=== PATIENT | female | born 1970 ===

== ENCOUNTER 2018-05-25 16:13 | Emergency (ER) | payer OTHER ==
--- NOTE | 2018-05-25 18:13 | UC ---
Eye Complaint HPI - HPI Summary HPI Summary: 48-year-old female presents with complaints of left eye dryness, burning, and high crusting in the mornings for the past 2-3 days. States last week she was having flulike symptoms including fever, chills, nasal congestion, runny nose, and a nonproductive cough. States her symptoms have been improving however she is noting a lot of left-sided sinus pressure along with her eye symptoms. Denies fever, chills, visual disturbances, eye drainage, injury to the eye, foreign body sensation, ear pain, sore throat, cough, chest pain, or shortness of breath. - History of Current Complaint Chief Complaint: UCEye Stated Complaint: EYE PAIN Time Seen by Provider: 05/25/18 18:01 Hx Obtained From: Patient Pain Intensity: 5 - Allergies/Home Medications Allergies/Adverse Reactions: Allergies Allergy/AdvReac Type Severity Reaction Status Date / Time No Known Allergies Allergy Verified 05/25/18 16:53 PMH/Surg Hx/FS Hx/Imm Hx Previously Healthy: Yes - Denies siginficant PMH - Surgical History Surgical History: Yes Surgery Procedure, Year, and Place: c section - Family History Known Family History: Positive: Non-Contributory - Social History Occupation: Employed Full-time Lives: With Family Alcohol Use: Weekly Substance Use Type: None Smoking Status (MU): Never Smoked Tobacco Review of Systems All Other Systems Reviewed And Are Negative: Yes Constitutional: Negative: Fever, Chills Skin: Negative: Rash Eyes: Positive: Other - Eye dryness, burning, and crusting in morning. Negative : Blurred Vision, Diplopia, Drainage, Eye Redness, Photophobia ENT: Positive: Sinus Congestion, Sinus Pain/Tenderness. Negative: Sore Throat, Ear Ache, Nasal Discharge Respiratory: Negative: Shortness Of Breath, Cough Cardiovascular: Negative: Palpitations, Chest Pain Gastrointestinal: Negative: Abdominal Pain, Vomiting, Diarrhea, Nausea Genitourinary: Positive: Negative Musculoskeletal: Positive: Negative Neurological: Positive: Negative Is Patient Immunocompromised?: No Physical Exam - Summary Physical Exam Summary: GENERAL APPEARANCE: Well developed, well nourished, alert and cooperative, and appears to be in no acute distress. EYES: Conjunctiva clear. No drainage. PERRL, EOM intact. Vision is grossly intact. EARS: External auditory canals and tympanic membranes clear, hearing grossly intact. NOSE: Mild nasal congestion. No nasal discharge. Left maxillary sinus tenderness. THROAT: Pharynx normal. No tonsilar inflammation, swelling, exudate, or lesions. Uvula midline. Oral cavity normal. Teeth and gingiva in good general condition. NECK: Neck supple, non-tender without lymphadenopathy. CARDIAC: Normal S1 and S2. No S3, S4 or murmurs. Rhythm is regular. There is no peripheral edema, cyanosis or pallor. Extremities are warm and well perfused. Capillary refill is less than 2 seconds. Peripheral pulses intact. LUNGS: Clear to auscultation without rales, rhonchi, wheezing or diminished breath sounds. ABDOMEN: Positive bowel sounds. Soft, nondistended, nontender. No guarding or rebound. No masses or hepatosplenomegally. MUSKULOSKELETAL: ROM intact to all extremities. No joint erythema or tenderness. Normal muscular development. Normal gait. SKIN: Skin normal color, texture and turgor with no lesions or eruptions. Triage Information Reviewed: Yes Vital Signs: Initial Vital Signs Temp 98.6 F 05/25/18 16:53 Pulse 74 05/25/18 16:53 Resp 18 05/25/18 16:53 BP 95/63 05/25/18 16:53 Pulse Ox 100 05/25/18 16:53 Vital Signs Reviewed: Yes Eye Complaint Course/Dx - Course Course Of Treatment: 48-year-old female presents with complaints of left eye dryness, burning, and high crusting in the mornings for the past 2-3 days. States last week she was having flulike symptoms including fever, chills, nasal congestion, runny nose, and a nonproductive cough. States her symptoms have been improving however she is noting a lot of left-sided sinus pressure along with her eye symptoms. Denies fever, chills, visual disturbances, eye drainage, injury to the eye, foreign body sensation, ear pain, sore throat, cough, chest pain, or shortness of breath. Afebrile. Vital signs stable. Exam reveals an adult female in no acute distress with a normal eye exam, maxillary sinus tenderness, and otherwise unremarkable exam. I suspect her symptoms are related to an acute sinus infection. I did offer to treat with a course of antibiotics considering her symptoms developed after what sounds like a viral URI however patient declines at this time and wishes to pursue symptomatic treatment. Recommend saline rinses, fluticasone nasal spray, and [id number] decongestant. She is to return here or follow-up with a primary care provider in 5 days if symptoms do not improve. Anticipatory guidance and warning symptoms reviewed with patient. Verbalizes understanding and agrees with plan of care. - Differential Dx/Diagnosis Differential Diagnosis/HQI/PQRI: Conjunctivitis, Other - URI, sinusitis Provider Diagnosis: Acute maxillary sinusitis Discharge - Sign-Out/Discharge Documenting (check all that apply): Patient Departure All imaging exams completed and their final reports reviewed: No Studies - Discharge Plan Condition: Stable Disposition: HOME Prescriptions: Fluticasone NASAL SPRAY 50MCG* [Flonase NASAL SPRAY 50MCG*] 2 spray BOTH NARES DAILY #1 btl Patient Education Materials: Sinusitis (ED) Referrals: No Primary Care Phys,NOPCP [Primary Care Provider] - Additional Instructions: Your history and exam are consistent with a sinus infection. Sinus infections without fever are most often caused by a viral infection. Viral infections do not respond to antibiotics and are limited to the treatment of symptoms. Viral infections typically run their course in 7-10 days. Drink plenty of fluids to avoid dehydration especially if you are running any fever. Use a saline rinse kit such as Neti Pot or NeilMed at least twice a day to help thin secretions and promote drainage of the sinuses. Use fluticasone (Flonase) nasal spray 2 sprays each nostril once daily. Use an over the counter decongestant such as Sudafed according to directions to help with congestion. Take over the counter acetaminophen (Tylenol) or ibuprofen (Advil, Motrin) according to directions as needed for pain or fever. Return here or follow up with your primary care provider in 5 days if symptoms persist. Seek immediate medical attention in the emergency room if you have fever greater than 100.5 F despite taking acetaminophen or ibuprofen, have chest pain , difficulty breathing, are unable to swallow, or have any worsening of symptoms. - Billing Disposition and Condition Condition: STABLE Disposition: Home
== END 2018-05-25 18:34 | disposition home or self-care (01) ==
LOC: UCEAST 16:13
DX: J01.00 Acute maxillary sinusitis, unspecified (principal)
CPT/HCPCS: 99202; G0463

== ENCOUNTER → 2018-11-16 12:03 | Day surgery (SDC) | payer OTHER ==
[~2018-11-16 12:03] MED LIST: Buffered Lidocaine 1% SYRIN* 1 ML/SYRINGE INTRADERM ONE; Bupivacaine 0.25% SDV PF* 10 ML VIAL INJ ONE; Lactated Ringers 1000 ML Bag* 1,000 ML IV SCH; Midazolam* 1 MG/ML 2 ML VIAL (2 MG) ONE; Naloxone* 0.4 MG/ML 1 ML VIAL IV PRN; Propofol* 10 MG/ML 20 ML BTL ONE; Sodium Citrate/Citric Acid* 15 ML UDC ONE; ceFAZolin 2 GM PREMIX in ORs 2 GM/50 ML BAG ONE; fentaNYL* 50 MCG/ML 2 ML VIAL (100 MCG VIAL) ONE
[2018-11-16 13:54] VITALS: BP 107/68
--- NOTE | 2018-11-16 22:56 | OP ---
DATE OF OPERATION: 11/16/18 - [facility] DATE OF : 66 SURGEON: Prabhjot Del Toro MD DRESS MARKER: No household personal assistant. PRE-OP DIAGNOSIS: Left breast cancer. POST-OP DIAGNOSIS: Left breast cancer. OPERATIVE PROCEDURE: Placement of right subclavian approach PowerPort. INDICATIONS FOR PROCEDURE: Requiring PowerPort for chemotherapy and treatment of left breast cancer. Risks included but not limited to bleeding, infection, and pneumothorax explained to the patient, who seemed to understand and agreed to the procedure and all questions were answered. DESCRIPTION OF PROCEDURE: The patient was taken to the operating room and placed supine. Preoperative antibiotics were given. Sedation was given by the anesthesiologist. The right chest was prepped and draped in sterile fashion. She was placed in a Trendelenburg position. Time-out was performed, indicating correct patient, correct procedure. The skin below the clavicle was anesthetized with plain lidocaine and a needle was placed in the right subclavian vein and using Seldinger technique, a wire was passed down to the superior vena cava, identified by fluoroscopy. The needle was removed. The tract was dilated. A split sheath was placed over the wire. The wire was removed. The catheter was advanced down towards the right atrium identified on fluoroscopy. Split sheath was removed. The catheter was then tunneled under the skin to a subcutaneous pocket placed slightly laterally as requested by the patient for neck line clothing. The port easily aspirated blood and flushed nicely with heparinized saline. The incision was closed with layered Monocryl and glue. She tolerated the procedure well. She was taken to the recovery room in stable condition where an x-ray was ordered. [id number]/[facility] #: [id number] [facility]
== END | disposition home or self-care (01) ==
LOC: OR 12:03
PROVIDERS: ATTEND Surgery
DX: C50.912 Malignant neoplasm of unspecified site of left female breast (principal)
CPT/HCPCS: 71045; 76000; 81025; A9270-GY; C1788; J0690; J1642; J2250; J2704; J3010; J3490